=== PATIENT | male | born 1980 | race Caucasian/White ===

== ENCOUNTER 2018-02-09 23:02 | Emergency (ER) | payer OTHER ==
--- NOTE | 2018-02-09 23:38 | ED Physician Documentation ---
PD HPI ANIMAL BITE - Stated complaint Stated Complaint: DOG BITE - Chief complaint Chief Complaint: Wound - History obtained from History obtained from: Patient - History of Present Illness Location of injury(ies): LUE (forearm) Details of the event: Dog (medium sized dog), Pet animal, Well appearing, Immunized, Provoked, Animal control notified Timing - onset: How many minutes ago (30), Today Timing - details: Abrupt onset Worsened by: Moving, Palpating Associated symptoms: No: Weakness, Numbness, Tingling Similar symptoms before: Has not had sx before Recently seen: Not recently seen Review of Systems Constitutional: denies: Fever, Chills Skin: reports: Laceration (s). denies: Rash, Lesions Musculoskeletal: denies: Neck pain, Back pain PD PAST MEDICAL HISTORY - Past Medical History Cardiovascular: None Respiratory: None Neuro: None Endocrine/Autoimmune: None - Present Medications Home Medications: Ambulatory Orders Medication Instructions Recorded Confirmed Amox/Clav 875/125 [Augmentin] 1 each PO BID #10 tablet 02/10/18 - Allergies Allergies/Adverse Reactions: Allergies Allergy/AdvReac Type Severity Reaction Status Date / Time No Known Drug Allergies Allergy Verified 02/09/18 23:09 PD ED PE NORMAL - Vitals Vital signs reviewed: Yes - General General: Alert and oriented X 3, Well developed/nourished - Derm Derm: Normal color, Warm and dry - Extremities Extremities: No deformity, No tenderness to palpate, Other (left forearm with several lacerations, one is 2 cm and exposes the fatty tissue. Other 3 are about 1/2 cm and also slightly open. No FB seen. Locally tender. ) - Neuro Neuro: Alert and oriented X 3, No motor deficit, No sensory deficit, Other (has some pain in forearm with hand armhole sewer and wrist flexion) Results - Vitals Vitals: Vital Signs - 24 hr 02/09/18 02/10/18 23:05 00:42 Temperature 36.9 C 37.4 C Heart Rate 80 83 Respiratory 22 18 Rate Blood Pressure 138/91 H 140/88 H O2 Saturation 98 96 Oxygen O2 Source Room air Procedures - Laceration (location) left forearm Length in cm: 2 Wound type: Linear, Into subcut fat, Clean Neurovascular status: Sensory intact, Motor intact, Vascular intact Tendon involvement: Tendon intact Anesthesia: Lidocaine 1% with epi Wound Preparation: Irrigated copiously NS Skin layer closure: Nylon, Interrupted, Size #-0 - enter number (4), Sutures - enter # (4 in that one, and a single suture in the other 3 ones to just lightly close them.) Other: Patient tolerated well, No complications, Neurovascular intact, Dressing applied, Tetanus UTD PD MEDICAL DECISION MAKING - ED course Complexity details: reviewed results, considered differential, d/w patient Departure - Departure Disposition: 01 Home, Self Care Clinical Impression: Dog bite of forearm Qualifiers: Encounter type: initial encounter Laterality: left Qualified Code(s): S51.852A - Open bite of left forearm, initial encounter Condition: Stable Record reviewed to determine appropriate education?: Yes Instructions: ED Bite Animal General, ED Laceration Ext Sutr Stap Tape Prescriptions: Amox/Clav 875/125 [Augmentin] 1 each PO BID #10 tablet Comments: It is okay to wash and shower. Clean off the wound twice a day with soap and water, or peroxide and water. Apply some antibiotic ointment to it to keep it moist. Also to watch for signs of infection such as purulence, redness or increasing pain. Return to your primary care or the ER at the specified time for suture removal. Suture removal 8-10 days. Tylenol or ibuprofen if needed for pains. Discharge Date/Time: 02/10/18 00:44
[2018-02-09] MEDS ORDERED: IBUPROFEN 600 MG TABLET PO STA (23:51)
[2018-02-09] MEDS ORDERED: AMOX/CLAV 875 MG/125 MG TABLET PO STA (23:51)
[2018-02-09] MEDS ORDERED: HYDROcod/ACETAM 5/325 MG TABLET PO STA (23:51)
[2018-02-10] MEDS ORDERED: BACITRACIN OINT TOP STA (00:23)
[2018-02-10] MEDS ORDERED: BACITRACIN OINT TOP ONE (00:32)
[2018-02-10 00:43] VITALS: BP 140/88
== END 2018-02-10 00:44 | disposition home or self-care (01) ==
LOC: ED 23:02
DX: S51.852A Open bite of left forearm, initial encounter (principal); W54.0XXA Bitten by dog, initial encounter
CPT/HCPCS: 12001; 99283; A9270

== ENCOUNTER 2018-06-27 09:49 | Outpatient (CLI) | payer OTHER | END 2018-06-27 09:50 | disposition home or self-care (01) | LOC: SC 09:49 | PROVIDERS: ATTEND Internal Medicine Pulmonary Disease | DX: G47.33 Obstructive sleep apnea (adult) (pediatric) (principal) | CPT/HCPCS: 99203; 99212 ==

== ENCOUNTER 2019-04-05 08:00 | Outpatient (CLI) | payer OTHER ==
[2019-04-05 19:00] LABS: BASOPHILS # (AUTO) 0.1 10^3/uL (0.0-0.1); BASOPHILS % (AUTO) 1.1 %; EOSINOPHILS # (AUTO) 0.1 10^3/uL (0.0-0.7); EOSINOPHILS % (AUTO) 2.1 %; LYMPHOCYTES # (AUTO) 2.3 10^3/uL (1.5-3.5); MEAN CORPUSCULAR HEMOGLOBIN 28.2 pg (27.0-31.0); MEAN CORPUSCULAR HGB CONC 32.9 g/dL (32.0-36.0); MEAN CORPUSCULAR VOLUME 85.9 fL (80.0-94.0); MEAN PLATELET VOLUME 10.6 fL (7.4-11.4); MONOCYTES # (AUTO) 0.5 10^3/uL (0.0-1.0); MONOCYTES % (AUTO) 7.1 %; NEUTROPHILS # (AUTO) 3.5 10^3/uL (1.5-6.6); NEUTROPHILS % (AUTO) 54.7 %; PLT - PLATELET COUNT 163 10^3/uL (130-450); RED BLOOD COUNT 5.65 10^6/uL (4.70-6.10); RED CELL DISTRIBUTION WIDTH 14.3 % (12.0-15.0); WHITE BLOOD COUNT 6.5 x10^3/uL (4.8-10.8)
[2019-04-05 19:19] LABS: ALBUMIN 4.3 g/dL (3.2-5.5); ALBUMIN/GLOBULIN RATIO 1.7 (1.0-2.2); ALKALINE PHOSPHATASE 47 IU/L (42-121); ALT ALANINE AMINOTRANSFERASE 49 IU/L (10-60); AST ASPARTATE AMINOTRANSFERASE 35 IU/L (10-42); BILIRUBIN,TOTAL 1.1 mg/dL (0.2-1.0); BUN - BLOOD UREA NITROGEN 17 mg/dL (6-20); CALCIUM 9.2 mg/dL (8.5-10.3); CARBON DIOXIDE - CO2 26 mmol/L (21-32); CHLORIDE 104 mmol/L (101-111); CHOLESTEROL 215 mg/dL; GFR - MDRD 83 (>89); GLUCOSE 93 mg/dL (70-100); HDL CHOLESTEROL 43 mg/dL; LDL CHOLESTEROL,CALCULATED 146 mg/dL; LDL/HDL RATIO 3.4 (<3.6); SODIUM 139 mmol/L (135-145); TOTAL PROTEIN 6.9 g/dL (6.7-8.2); VLDL CHOLESTEROL 26 mg/dL
== END 2019-04-05 08:01 | disposition home or self-care (01) ==
LOC: LAB.WCP 08:00
PROVIDERS: ATTEND Family Medicine
DX: Z00.00 Encounter for general adult medical examination without abnormal findings (principal)
CPT/HCPCS: 36415; 80053; 80061; 83721; 84443; 85025

== ENCOUNTER 2019-11-15 09:22 | Outpatient (CLI) | payer OTHER ==
[2019-11-15 12:38] LABS: CHOL/HDL RATIO 5.8 (<5.0); CHOLESTEROL 207 mg/dL; HDL CHOLESTEROL 36 mg/dL; LDL CHOLESTEROL,CALCULATED 147 mg/dL; LDL/HDL RATIO 4.1 (<3.6); VLDL CHOLESTEROL 24 mg/dL
== END 2019-11-15 23:59 | disposition home or self-care (01) ==
LOC: LAB.R 09:22
PROVIDERS: ATTEND Family Medicine
DX: E78.5 Hyperlipidemia, unspecified (principal)
CPT/HCPCS: 36415; 80061; 83721

== ENCOUNTER 2020-07-12 09:14 | Outpatient (CLI) | payer OTHER ==
[2020-07-12 11:25] LABS: BASOPHILS % (AUTO) 0.6 %; EOSINOPHILS # (AUTO) 0.3 10^3/uL (0.0-0.7); HGB - HEMOGLOBIN 16.5 g/dL (14.0-18.0); LYMPHOCYTES # (AUTO) 1.9 10^3/uL (1.5-3.5); LYMPHOCYTES % (AUTO) 27.9 %; MEAN CORPUSCULAR HEMOGLOBIN 29.3 pg (27.0-31.0); MEAN CORPUSCULAR HGB CONC 34.1 g/dL (32.0-36.0); MEAN PLATELET VOLUME 12.4 fL (7.4-11.4); MONOCYTES # (AUTO) 0.6 10^3/uL (0.0-1.0); MONOCYTES % (AUTO) 8.3 %; NEUTROPHILS % (AUTO) 57.6 %; PLT - PLATELET COUNT 162 10^3/uL (130-450); RED BLOOD COUNT 5.63 10^6/uL (4.70-6.10); RED CELL DISTRIBUTION WIDTH 12.8 % (12.0-15.0)
[2020-07-12 11:54] LABS: ALBUMIN 4.6 g/dL (3.2-5.5); ALBUMIN/GLOBULIN RATIO 1.7 (1.0-2.2); ALKALINE PHOSPHATASE 56 IU/L (42-121); ALT ALANINE AMINOTRANSFERASE 37 IU/L (10-60); AST ASPARTATE AMINOTRANSFERASE 25 IU/L (10-42); BILIRUBIN,TOTAL 0.7 mg/dL (0.2-1.0); BUN - BLOOD UREA NITROGEN 17 mg/dL (6-20); CALCIUM 9.2 mg/dL (8.5-10.3); CARBON DIOXIDE - CO2 26 mmol/L (21-32); CHLORIDE 104 mmol/L (101-111); CHOL/HDL RATIO 5.2 (<5.0); CHOLESTEROL 191 mg/dL; CREATININE 1.1 mg/dL (0.6-1.2); GLUCOSE 116 mg/dL (70-100); HDL CHOLESTEROL 37 mg/dL; LDL CHOLESTEROL,CALCULATED 114 mg/dL; LDL/HDL RATIO 3.1 (<3.6); SODIUM 138 mmol/L (135-145); TOTAL PROTEIN 7.3 g/dL (6.7-8.2); VLDL CHOLESTEROL 40 mg/dL
== END 2020-07-12 23:59 | disposition home or self-care (01) ==
LOC: LAB.WCP 09:14
PROVIDERS: ATTEND Family Medicine
DX: M10.9 Gout, unspecified (principal); E78.5 Hyperlipidemia, unspecified
CPT/HCPCS: 36415; 80053; 80061; 83721; 84153; 84443; 84550; 85025

== ENCOUNTER 2021-01-03 12:40 | Outpatient (CLI) | payer OTHER ==
--- NOTE | 2021-01-03 14:56 | MRI Report ---
PROCEDURE: Lumbar Spine W/O INDICATIONS: BACK PAIN, LUMBAR W/RADICULOPATHY TECHNIQUE: Noncontrast sagittal T1 spin echo and T2 fast echo, sagittal STIR, axial T1 and T2 fast spin echo thr ough the lumbar spine. In cases with scoliosis, additional coronal T2 fast spin echo may be performe d. COMPARISON: None. FINDINGS: Image quality: Excellent. Alignment and Curvature: No plain films are available for comparison. Thus, for numbering purposes, 5 lumbar type vertebral bodies will be presumed for the current report. This should be confirmed with plain film correlation prior to any lumbar spinal intervention. There is minimal grade 1 retrolisthe sis of L4 on L5. Alignment is otherwise normal. Bone Marrow: Marrow is of normal overall signal. No acute vertebral body compression fractures. Th ere is mild reactive signal within the end plates adjacent to the L2-L3, L3-L4, and L4-L5 interverteb ral discs. Spinal Cord: Conus medullaris terminates at the upper L1 level. Visualized cord demonstrates normal signal and size. Paraspinous Soft Tissues: No paravertebral masses. T12-L1: Normal in appearance. L1-L2: Normal in appearance. L2-L3: Normal in appearance. L3-L4: Moderate disc desiccation. Mild diffuse disc bulge. Mild facet and ligament flavum hypertrop hy. Mild epidural lipomatosis. Mild canal stenosis. Mild bilateral foraminal stenosis. L4-L5: Moderate disc height loss and desiccation. Moderate diffuse disc bulge. Mild facet and ligam ent flavum hypertrophy. Mild canal stenosis. Mild right and severe left foraminal stenosis. Mild left L4 nerve root compression. L5-S1: Mild bilateral facet and ligament flavum hypertrophy. No significant canal stenosis. Mild bi lateral foraminal stenosis. IMPRESSION: 1. Multilevel lumbar 2. Mild multilevel canal stenoses. 3. Multilevel foraminal stenoses, worst on the left at L4-L5 where there is associated L4 nerve root compression. Correlation with clinical symptoms to ascertain relevance of this finding. 4. Five lumbar type vertebral bodies were presumed for the purposes of the current report. Correlati on with plainfilms for numbering purposes is recommended prior to any lumbar spinal intervention. Reviewed by: Etienne Valderrama MD on 01/03/2021 2:54 PM PST Approved by: Etienne Valderrama MD on 01/03/2021 2:54 PM PST Station ID: [id number]
== END 2021-01-03 12:41 | disposition home or self-care (01) ==
LOC: DI 12:40
PROVIDERS: ATTEND Physician Assistant
DX: M47.816 Spondylosis without myelopathy or radiculopathy, lumbar region (principal); M51.36 Other intervertebral disc degeneration, lumbar region; M48.061 Spinal stenosis, lumbar region without neurogenic claudication; E88.2 Lipomatosis, not elsewhere classified; M47.817 Spondylosis without myelopathy or radiculopathy, lumbosacral region; M51.37 Other intervertebral disc degeneration, lumbosacral region; M48.07 Spinal stenosis, lumbosacral region

== ENCOUNTER 2022-01-22 10:06 | Outpatient (CLI) | payer OTHER ==
--- NOTE | 2022-01-22 10:56 | XRAY Report ---
PROCEDURE: Knee 3 View LT INDICATIONS: KNEE PAIN, LEFT; HX OF GOUT TECHNIQUE: 3 views of the left knee(s) were acquired. COMPARISON: None. FINDINGS: Bones: No fractures or dislocations. No suspicious bony lesions. Mild tricompartmental knee joint degeneration. There are bony erosions in medial and inferior aspects of patella. Soft tissues: Trace joint effusion. No suspicious soft tissue calcifications. IMPRESSION: 1. Mild degenerative joint disease. 2. Bony erosions in patella, which could be secondary to gouty arthritis. 3. Trace knee joint fusion. Reviewed by: Nivia Gómez MD on 01/22/2022 10:55 AM [facility] Approved by: Nivia Gómez MD on 01/22/2022 10:55 AM PST Station ID: [id number]
== END 2022-01-22 10:07 | disposition home or self-care (01) ==
LOC: DI.N 10:06
PROVIDERS: ATTEND Nurse Practitioner Family
DX: M17.12 Unilateral primary osteoarthritis, left knee (principal); M25.462 Effusion, left knee; R93.6 Abnormal findings on diagnostic imaging of limbs; M25.562 Pain in left knee; Z86.39 Personal history of other endocrine, nutritional and metabolic disease
CPT/HCPCS: 36415; 84550; 85025

== ENCOUNTER 2022-01-22 10:33 | Outpatient (CLI) | payer OTHER ==
[2022-01-22 12:08] LABS: BASOPHILS # (AUTO) 0.1 10^3/uL (0.0-0.1); BASOPHILS % (AUTO) 0.4 %; EOSINOPHILS # (AUTO) 0.2 10^3/uL (0.0-0.7); EOSINOPHILS % (AUTO) 1.6 %; HCT - HEMATOCRIT 48.7 % (42.0-52.0); HGB - HEMOGLOBIN 16.4 g/dL (14.0-18.0); LYMPHOCYTES # (AUTO) 2.4 10^3/uL (1.5-3.5); LYMPHOCYTES % (AUTO) 20.3 %; MEAN CORPUSCULAR HEMOGLOBIN 28.6 pg (27.0-31.0); MEAN CORPUSCULAR HGB CONC 33.7 g/dL (32.0-36.0); MONOCYTES # (AUTO) 1.1 10^3/uL (0.0-1.0); MONOCYTES % (AUTO) 9.3 %; NEUTROPHILS # (AUTO) 7.9 10^3/uL (1.5-6.6); PLT - PLATELET COUNT 185 10^3/uL (130-450); RED BLOOD COUNT 5.73 10^6/uL (4.70-6.10); RED CELL DISTRIBUTION WIDTH 12.9 % (12.0-15.0); WHITE BLOOD COUNT 11.8 x10^3/uL (4.8-10.8)
== END 2022-01-22 10:34 | disposition home or self-care (01) ==
LOC: LAB.N 10:33
PROVIDERS: ATTEND Nurse Practitioner Family
DX: Z86.39 Personal history of other endocrine, nutritional and metabolic disease (principal); M25.562 Pain in left knee
CPT/HCPCS: 36415; 84550; 85025

== ENCOUNTER → 2022-08-20 | Outpatient (CLI) | payer OTHER ==
--- NOTE | 2022-08-20 15:18 | XRAY Report ---
PROCEDURE: Hip w/Pelvis 1V RT INDICATIONS: RIGHT HIP PAIN TECHNIQUE: AP pelvis with lateral view(s) of the hip(s). COMPARISON: None. FINDINGS: Bones: No fractures or dislocations. Pelvic ring appears intact. No suspicious bony lesions. Soft tissues: The visualized bowel gas pattern is normal. No suspicious soft tissue calcifications. IMPRESSION: This is a normal study. Reviewed by: Etienne Valderrama MD on 08/20/2022 3:17 PM PDT Approved by: Etienne Valderrama MD on 08/20/2022 3:17 PM PDT Station ID: [id number]
== END ==
LOC: DI.N 14:27
PROVIDERS: ATTEND Nurse Practitioner
DX: M25.551 Pain in right hip (principal)

== ENCOUNTER 2024-01-27 12:30 | Outpatient (CLI) | payer OTHER ==
--- NOTE | 2024-01-27 16:26 | MRI Report ---
PROCEDURE: Lumbar Spine WO INDICATIONS: HERNIATED LUMBAR DISK TECHNIQUE: Noncontrast sagittal T1 spin echo and T2 fast echo, sagittal STIR, axial T1 and T2 fast spin echo thr ough the lumbar spine. In cases with scoliosis, additional coronal T2 fast spin echo may be performe d. COMPARISON: 01/03/2021. FINDINGS: Image quality: Excellent. Alignment and Curvature: There is normal bony alignment. Bone Marrow: Marrow is of normal overall signal. No acute vertebral body compression fractures. Spinal Cord: Conus medullaris terminates at the L1 level. Visualized cord demonstrates normal signa l and size. Paraspinous Soft Tissues: No paravertebral masses. T11-T12: Normal in appearance T12-L1: Normal in appearance. L1-L2: Normal in appearance L2-L3: Mild facet hypertrophy. Minimal disc bulge. No canal stenosis or foraminal stenosis. L3-L4: Interval development of disc height loss. Diffuse disc bulge with minimal superimposed centr al posterior broad-based disc retrusion. Facet hypertrophy. Slightly progressive mild canal stenosis. No significant foraminal stenosis. L4-L5: Interval increase in disc height loss, severe. Diffuse disc bulge. Facet hypertrophy. Slight progression of canal stenosis, still only mild. Mild right foraminal narrowing. On today's study, th e left foramen appears moderately to severely narrowed with mild impingement on the exiting left L4 n erve root. L5-S1: Bilateral facet hypertrophy. No canal stenosis or foraminal stenosis. IMPRESSION: 1. There is underlying multilevel facet arthropathy. 2. There is mild interval progression at L3-L4 and L4-L5. At both of these levels, there is increase in disc height loss. There is slight interval progression of canal stenosis, which is still mild at b oth levels. 3. At L4-L5, there is moderate to severe left foraminal narrowing with mild impingement on the exitin g left L4 nerve root. Reviewed by: Sanya Ty MD on 01/27/2024 4:25 PM PST Approved by: Sanya Ty MD on 01/27/2024 4:25 PM PST Station ID: [id number]
== END 2024-01-27 12:31 | disposition home or self-care (01) ==
LOC: DI 12:30
PROVIDERS: ATTEND Nurse Practitioner Family
DX: M51.26 Other intervertebral disc displacement, lumbar region (principal); M47.26 Other spondylosis with radiculopathy, lumbar region; M48.061 Spinal stenosis, lumbar region without neurogenic claudication; M51.16 Intervertebral disc disorders with radiculopathy, lumbar region; M47.817 Spondylosis without myelopathy or radiculopathy, lumbosacral region